=== PATIENT | male | born 1950 | race Two or more races ===

== ENCOUNTER 2018-10-01 17:41 | Emergency (ER) | payer OTHER ==
[2018-10-01] MEDS ORDERED: METHYLPREDNISOLONE 125 MG INJ ONE (18:00)
[2018-10-01] MEDS ORDERED: FAMOTIDINE 20 MG/2 ML VIAL IV ONE (18:01)
[2018-10-01] MEDS ORDERED: DIPHENHYDRAMINE 50 MG/ML VIAL ONE (18:01)
--- NOTE | 2018-10-01 18:46 | ER ---
Nurse's Notes [facility] Name: Ochoa Anderson Age: 68 yrs Sex: Male : 1950 Arrival Date: 10/01/2018 Time: 17:46 Bed 4 Private MD: Diagnosis: Allergy status to other drugs, medicaments and biological substances status;Acute post-traumatic headache Presentation: 10/01 17:49 Presenting complaint: EMS states: Patient reported syncopal episode today, falling aj forward onto tile hitting top lip, after being outside all day and eating crab. Patient reports allergy to crab. Rash noted to body and patient reports itching. EMS reports patient had near syncopal episode when standing at home. Swelling to bilateral hands noted. Transition of care: patient was not received from another setting of care. Onset of symptoms was October 01, 2018. Risk Assessment: Do you want to hurt yourself or someone else? Patient reports no desire to harm self or others. Initial Sepsis Screen: Does the patient meet any 2 criteria? No. Patient's initial sepsis screen is negative. Does the patient have a suspected source of infection? No. Patient's initial sepsis screen is negative. Care prior to arrival: None. 17:49 Method Of Arrival: EMS: [facility] aj 17:49 Acuity: DOTTY 2 aj Triage Assessment: 17:52 General: Appears in no apparent distress. comfortable, Behavior is calm, cooperative, aj appropriate for age. Pain: Complains of pain in upper lip. Neuro: Level of Consciousness is awake, alert, obeys commands, Oriented to person, place, time, situation, Appropriate for age. Respiratory: Airway is patent Trachea midline Respiratory effort is even, unlabored, Respiratory pattern is regular, symmetrical. Derm: Skin is intact, is healthy with good turgor, Skin is normal, red, Reports itching. Historical: - Allergies: 17:52 crab; aj - PMHx: 18:09 Hypertension; Diabetes - NIDDM; aj - Immunization history:: Adult Immunizations up to date. - Social history:: Smoking status: Patient/guardian denies using tobacco, Patient/guardian denies using alcohol, street drugs, The patient lives with family. - Ebola Screening: : Patient negative for fever greater than or equal to 101.5 degrees Fahrenheit, and additional compatible Ebola Virus Disease symptoms Patient denies exposure to infectious person Patient denies travel to an Ebola-affected area in the 21 days before illness onset No symptoms or risks identified at this time. - Family history:: not pertinent. Screenin:52 Abuse screen: Denies threats or abuse. Denies injuries from another. Nutritional aj screening: No deficits noted. Tuberculosis screening: No symptoms or risk factors identified. Fall Risk None identified. Assessment: 18:07 Reassessment: Patient appears in no apparent distress at this time. No changes from aj previously documented assessment. Patient is alert, oriented x 3, equal unlabored respirations, skin warm/dry/pink. Patient denies pain at this time. Vital Signs: 17:52 BP 144 / 78; Pulse 84; Resp 18; Temp 97.9; Pulse Ox 100% on R/A; Weight 61.23 kg; aj Height 5 ft. 2 in. (160 cm); 19:09 BP 137 / 88; Pulse 81; Resp 16; Pulse Ox 99% on R/A; aj 17:52 Body Mass Index 23.92 (61.23 kg, 160 cm) aj ED Course: 17:46 Patient arrived in ED. bp 17:49 Montserrat Lewis, RN is Primary Nurse. aj 17:51 Triage completed. aj 17:52 Arm band placed on right wrist. Patient placed in an exam room, on a stretcher, on aj airline radio operator, on pulse oximetry. 17:52 Patient has correct armband on for positive identification. Placed in gown. Bed in low aj position. Call light in reach. Side rails up X 1. Adult w/ patient. geriatric nurse practitioner on. Pulse ox on. NIBP on. 17:52 Maintain EMS IV. Gauge \T\ site: 18 G to bilateral Right and Left AC. aj 17:58 Anni Szymanski MD is Attending Physician. ma2 18:23 CT Head C Spine In Process Unspecified. EDMS 19:09 No provider procedures requiring assistance completed. IV discontinued, intact, aj bleeding controlled, No redness/swelling at site. Pressure dressing applied. Administered Medications: 18:15 Drug: Benadryl 50 mg Route: IVP; Site: left antecubital; aj 19:08 Follow up: Response: No adverse reaction aj 18:24 Drug: NS 0.9% 1000 ml Route: IV; Rate: 1 bolus; Site: left antecubital; aj 19:08 Follow up: Response: No adverse reaction; IV Status: Completed infusion; IV Intake: aj 1000ml 18:24 Drug: MethylPrednisoLONE 125 mg Route: IVP; Site: left antecubital; aj 19:08 Follow up: Response: No adverse reaction; Marked relief of symptoms aj 18:24 Drug: Pepcid 10 mg Route: IVP; Site: left antecubital; aj 19: Follow up: Response: No adverse reaction aj 19: Drug: Motrin 400 mg Route: PO; aj 19: Follow up: Response: Medication administered at discharge. aj Intake: 19:08 IV: 1000ml; Total: 1000ml. aj Outcome: 18:46 Discharge ordered by . blanca 19:09 Discharged to home ambulatory, with family. aj 19: Condition: good 19:09 Discharge instructions given to patient, family, Instructed on discharge instructions, follow up and referral plans. medication usage, Demonstrated understanding of instructions, follow-up care, medications, Prescriptions given X 3. 19:10 Patient left the ED. aj Signatures: Dispatcher [employer] EDMontserrat Tovar RN RN Peña Lee, RN RN Anni Sauceda MD MD ma2 Corrections: (The following items were deleted from the chart) 17:53 17:52 Derm: Skin is intact, is healthy with good turgor, Skin is pink, warm \T\ dry. aj normal, aj 18:08 17:52 BP 144 / 78; Pulse 84bpm; Resp 18bpm; Pulse Ox 100% RA; aj aj
--- NOTE | 2018-10-01 18:46 | EDPHYS ---
Physician Documentation [facility] Name: Ochoa Anderson Age: 68 yrs Sex: Male : 1950 Arrival Date: 10/01/2018 Time: 17:46 Bed 4 Private MD: ED Physician Anni Szymanski HPI: 10/01 18:03 This 68 yrs old Male presents to ER via EMS with complaints of allergic reaction. ma2 18:03 The patient presents with itching, rash. Onset: The symptoms/episode began/occurred ma2 suddenly. Associated signs and symptoms: Pertinent negatives: chest pain, hives, nausea. Possible causes: crab. Severity of symptoms: At their worst the symptoms were moderate in the emergency department the symptoms have improved. The patient has experienced similar episodes in the past. Historical: - Allergies: 17:52 crab; aj - PMHx: 18:09 Hypertension; Diabetes - NIDDM; aj - Immunization history:: Adult Immunizations up to date. - Social history:: Smoking status: Patient/guardian denies using tobacco, Patient/guardian denies using alcohol, street drugs, The patient lives with family. - Ebola Screening: : Patient negative for fever greater than or equal to 101.5 degrees Fahrenheit, and additional compatible Ebola Virus Disease symptoms Patient denies exposure to infectious person Patient denies travel to an Ebola-affected area in the 21 days before illness onset No symptoms or risks identified at this time. - Family history:: not pertinent. ROS: 18:03 Eyes: Negative for injury, pain, redness, and discharge. ma2 18:03 All other systems are negative. Exam: 18:03 Constitutional: This is a well developed, well nourished patient who is awake, alert, ma2 and in no acute distress. Chest/axilla: Normal chest wall appearance and motion. Nontender with no deformity. No lesions are appreciated. Cardiovascular: Regular rate and rhythm with a normal S1 and S2. No gallops, murmurs, or rubs. Normal PMI, no JVD. No pulse deficits. Respiratory: Lungs have equal breath sounds bilaterally, clear to auscultation and percussion. No rales, rhonchi or wheezes noted. No increased work of breathing, no retractions or nasal flaring. Abdomen/GI: Soft, non-tender, with normal bowel sounds. No distension or tympany. No guarding or rebound. No evidence of tenderness throughout. Skin: diffuse hives, otherwise skin Warm, dry with normal turgor. Normal color with no rashes, no lesions, and no evidence of cellulitis. MS/ Extremity: Pulses equal, no cyanosis. Neurovascular intact. Full, normal range of motion. Neuro: Awake and alert, GCS 15, oriented to person, place, time, and situation. Cranial nerves II-XII grossly intact. Motor strength 5/5 in all extremities. Sensory grossly intact. Cerebellar exam normal. Normal gait. Vital Signs: 17:52 BP 144 / 78; Pulse 84; Resp 18; Temp 97.9; Pulse Ox 100% on R/A; Weight 61.23 kg; aj Height 5 ft. 2 in. (160 cm); 19:09 BP 137 / 88; Pulse 81; Resp 16; Pulse Ox 99% on R/A; aj 17:52 Body Mass Index 23.92 (61.23 kg, 160 cm) MDM: 18:03 Patient medically screened. [facility] 18:03 Differential diagnosis: non IgE mediated drug reaction urticaria, Vasovagal Reactions. [facility] 18:45 Data reviewed: vital signs, nurses notes. Counseling: I had a detailed discussion with [facility] the patient and/or guardian regarding: the historical points, exam findings, and any diagnostic results supporting the discharge/admit diagnosis, the presence of at least one elevated blood pressure reading (>120/80) during this emergency department visit, the need for outpatient follow up. Response to treatment: the patient's symptoms have resolved after treatment. 10/01 18:00 Order name: CT Head C Spine; Complete Time: 18:50 [facility] 10/01 18:00 Order name: EKG - Nurse/Tech; Complete Time: 18:25 [facility] Administered Medications: 18:15 Drug: Benadryl 50 mg Route: IVP; Site: left antecubital; aj 19:08 Follow up: Response: No adverse reaction 18:24 Drug: NS 0.9% 1000 ml Route: IV; Rate: 1 bolus; Site: left antecubital; aj 19:08 Follow up: Response: No adverse reaction; IV Status: Completed infusion; IV Intake: aj 1000ml 18:24 Drug: MethylPrednisoLONE 125 mg Route: IVP; Site: left antecubital; aj 19:08 Follow up: Response: No adverse reaction; Marked relief of symptoms aj 18:24 Drug: Pepcid 10 mg Route: IVP; Site: left antecubital; aj 19:08 Follow up: Response: No adverse reaction aj 19:08 Drug: Motrin 400 mg Route: PO; aj 19:09 Follow up: Response: Medication administered at discharge. Disposition: 10/01/18 18:46 Discharged to Home. Impression: Allergy status to other drugs, medicaments and biological substances status, Acute post-traumatic headache. - Condition is Stable. - Discharge Instructions: Seafood Allergy. - Prescriptions for Benadryl 25 mg Oral Capsule - take 1 capsule by ORAL route every 6 hours As needed; 30 tablet. Medrol (Heath) 4 mg Oral Tablets, Dose Pack - take 1 tablet by ORAL route as directed - follow package instructions; 1 packet. EpiPen 0.3 mg Injection auto- injector - inject 1 pen by INTRAMUSCULAR route one time Inject into the outer portion of the thigh, through clothing if necessary. Indicated in the emergency treatment of allergic reactions; 1 Cartridge. - Medication Reconciliation Form, Thank You Letter, Antibiotic Education, Prescription Opioid Use form. - Follow up: Private Physician; When: Tomorrow; Reason: Continuance of care. Signatures: Dispatcher [employer] Montserrat Alejandre RN RN aj Alzahri, Mohammad, MD MD ma2 Corrections: (The following items were deleted from the chart) 19:10 18:46 10/01/2018 18:46 Discharged to Home. Impression: Allergy status to other drugs, medicaments and biological substances status; Acute post-traumatic headache. Condition is Stable. Discharge Instructions: Seafood Allergy. Prescriptions for Benadryl 25 mg Oral Capsule - take 1 capsule by ORAL route every 6 hours As needed; 30 tablet, Medrol (Heath) 4 mg Oral Tablets, Dose Pack - take 1 tablet by ORAL route as directed - follow package instructions; 1 packet, EpiPen 0.3 mg Injection auto-injector - inject 1 pen by INTRAMUSCULAR route one time Inject into the outer portion of the thigh, through clothing if necessary. Indicated in the emergency treatment of allergic reactions; 1 Cartridge. and Forms are Medication Reconciliation Form, Thank You Letter, Antibiotic Education, Prescription Opioid Use. Follow up: Private Physician; When: Tomorrow; Reason: Continuance of care. ma2
--- NOTE | 2018-10-01 18:46 | RAD REPORT ---
EXAM DESCRIPTION: CT - [id number] - 10/01/2018 6:22 pm CLINICAL HISTORY: Syncope, fall, head and neck injury COMPARISON: None. TECHNIQUE: Axial 5 mm thick images of the head were obtained. Axial 2 mm thick images of the cervic al spine were obtained with sagittal and coronal reconstruction images generated and reviewed. All CT scans are performed using dose optimization technique as appropriate and may include automated exposure control or mA/KV adjustment according to patient size. FINDINGS: No intracranial hemorrhage, mass, edema or acute intracranial finding. No suspicion for acute infarct ion. Minimal atrophy and chronic ischemic changes present. Ventricles are in proportion to volume los s. Mastoid air cells are clear. Trace amount of fluid is seen in the left maxillary sinus. No additio nal findings to indicate trauma etiology. No globe or orbit abnormality seen. Cervical body height and alignment are normal. No disk space narrowing. No fracture or acute bony abn ormality. Central canal detail is inherently limited. No significant degree degenerative change. No paraspinal mass or hematoma. IMPRESSION: No hemorrhage, edema or acute intracranial finding. Patient has minimal atrophy and fence laborer alexandra ischemic change. Negative CT cervical spine examination for acute or significant finding.
[2018-10-01] MEDS ORDERED: IBUPROFEN 400 MG TAB ONE (19:14)
--- NOTE | 2018-10-02 12:53 | EKG ---
Test Date: 2018-10-01 Test Time: 18:03:57 [employer] Leader: ARM MEASUREMENT RESULTS: Intervals: Rate: 89 WY: 176 QRSD: 78 QT: 388 QTc: 472 [place]: P: 64 W[place]: 176 QRS: 9 T: 64 INTERPRETIVE STATEMENTS: Normal sinus rhythm Normal ECG No previous ECG available for comparison Electronically Signed On 10-02-18 12:49:49 CDT by Ino Chaudhry
== END 2018-10-01 19:10 | disposition home or self-care (01) ==
LOC: ER 17:41
DX: G44.319 Acute post-traumatic headache, not intractable (principal); I10 Essential (primary) hypertension; Z88.8 Allergy status to other drugs, medicaments and biological substances; Z91.013 Allergy to seafood
CPT/HCPCS: 70450; 72125; 93005; 96361; 96374; 96375; 99284; J2930